=== PATIENT | male | born 1950 | race Caucasian/White ===

== ENCOUNTER → 2017-02-23 | Outpatient (CLI) | payer BC, MEDICARE ==
[~2017-02-23] MED LIST: IOHEXOL 300 MG/ML 100ml INJECTION ONE; NORMAL SALINE 100 ML ONE; SALINE FLUSH 10ml SYRINGE ONE
--- NOTE | 2017-02-23 14:46 | DI ---
Indication: ITS.REASON: R10.163 EPIGASTRIC PAIN; R11.0 NAUSEA PROCEDURE: CT ABD/PELVIS W/CONTRAST ONLY: Encounter: Initial Comparison: None Technique: Axial CT images were performed through the abdomen and pelvis after the administration of intravenous contrast. Coronal and sagittal two-dimensional reformats. Automated Exposure Control and Iterative Reconstruction dose reducing techniques were utilized. Contrast: Omnipaque 300 100 mL Findings: The lung bases are clear. The liver is normal. The gallbladder is unremarkable. The spleen, pancreas and adrenal glands are normal. There are small low-attenuation right renal foci which are too small to definitively characterize. There is an additional 1.9 cm low-attenuation right renal lesion arising from the lower pole which has higher attenuation than normal for a cyst. This measures over 50 Hounsfield units in density. No abdominal or pelvic lymphadenopathy. Scattered arterial plaque. Bladder is normal. Prostate and rectum are grossly normal. No free fluid. No evidence of obstruction. Moderate stool in the colon. The appendix is normal. Bone windows show no acute findings. Impression: 1. Indeterminate 1.9 cm lower pole right renal lesion could represent an atypical or proteinaceous cyst but further evaluation with renal ultrasound is recommended to exclude complex cyst or cystic neoplasm. 2. Otherwise no acute findings. .
== END ==
LOC: IMA 13:31
PROVIDERS: ATTEND Family Medicine
DX: N28.9 Disorder of kidney and ureter, unspecified (principal); R10.13 Epigastric pain; R11.0 Nausea
CPT/HCPCS: 74177; J7050; Q9967

== ENCOUNTER → 2017-03-03 | Outpatient (CLI) | payer BC, MEDICARE ==
--- NOTE | 2017-03-03 11:42 | DI ---
Indication: ITS.REASON: N28.1 RENAL CYST PROCEDURE: US RENAL: Encounter: Initial Comparison: CT abdomen/pelvis dated February 23, 2017 Technique: Grayscale and color Doppler sonographic imaging of both kidneys was performed. FINDINGS: Both kidneys are present with normal cortical thickness and echogenicity. No evidence for collecting system dilatation, contour deforming mass, nephrolithiasis, or abnormal perinephric fluid collection. The right kidney measures 10.5 cm in length, and the left kidney measures 10.7 cm in length. The lesion of concern on CT represents a septated anechoic cyst in the inferior aspect of the right kidney measuring 2 x 1.8 x 1.9 cm in size. No internal vascularity or solid component. There is also a simple 1.1 cm cyst in the left kidney. IMPRESSION: Septated but benign appearing inferior pole right renal cyst. Recommend follow-up ultrasound in one year to document continued stability. .
== END ==
LOC: IMA 09:33
PROVIDERS: ATTEND Family Medicine
DX: N28.1 Cyst of kidney, acquired (principal)